=== PATIENT | female | born 1985 | race Two or more races ===

== ENCOUNTER 2018-10-17 05:41 | Day surgery (SDC) | payer OTHER ==
[2018-10-17] VITALS (13 sets, daily range): BP systolic 123–139; BP diastolic 45–84
[~2018-10-17] VITALS: Ht 167.6 cm; Wt 112.5 kg
[~2018-10-17 05:41] MED LIST: IBUPROFEN600 MG ORAL
[2018-10-17] MEDS ORDERED: celeBREX 200mg Cap **SURGERY PATIENTS ONLY ORAL ONE (06:00)
[2018-10-17] MEDS ORDERED: ceFAZolin 1gm IVPB IVPB ONE ×2 (06:00)
--- NOTE | 2018-10-17 06:49 | Anethesia Preoperative Eval ---
Marlo Gutierrez MD 10/17/18 0649: Anesthesia Pre-op [facility] General Date of Evaluation: Oct 17, 2018 Time of Evaluation: 06:45 ASA Score: ASA 3 Mallampati Score Class I : Soft palate, uvula, fauces, pillars visible Class II: Soft palate, uvula, fauces visible Class III: Soft palate, base of uvula visible Class IV: Only hard plate visible Mallampati Classification: Class III Anesthesia History: difficult airway Allergies: Coded Allergies: ACETAMINOPHEN (Verified Allergy, Severe, 10/17/18) trouble breathing, sweating, nausea, vomiting CARISOPRODOL (Verified Allergy, Severe, 10/17/18) trouble breathing, sweating, nausea, vomiting CODEINE (Verified Allergy, Severe, 10/17/18) trouble breathing, sweating, nausea, vomiting HYDROCODONE (Verified Allergy, Severe, 10/17/18) trouble breathing, sweating, nausea, vomiting MORPHINE (Verified Allergy, Severe, 10/17/18) trouble breathing, sweating, nausea, vomiting TRAMADOL (Verified Allergy, Severe, 10/17/18) trouble breathing, sweating, nausea, vomiting Uncoded Allergies: NARCOTICS (Allergy, Severe, 10/16/18) ANXIETY, TROUBLE BREATHING, NAUSEA,VOMITING, SWEATING Past Medical History Gastrointestinal/Genitourinary: Reports: GERD Other: obesity Anesthesia Pre-op Phys. Exam Physician Exam Last Vital Signs Date Time Temp Pulse Resp B/P (MAP) Pulse Ox O2 Delivery O2 Flow Rate FiO2 10/17/18 06:13 97.6 70 18 126/68 100 Room Air Constitutional: NAD Anesthesia Pre-op A/P Labs Urine Test Test 10/17/18 05:55 Urine HCG, Qualitative Negative (NEGATIVE) Risk Assessment & Plan Assessment: asa3 Status Change Before Surgery: No Pre-Antibiotics Given Within 1 Hr of Incision: Yes Anna Buchanan CRNA 10/17/18 0831: Anesthesia Pre-op [facility] General Date of Evaluation: Oct 17, 2018 Time of Evaluation: 07:00 Anesthesiologist: lindsey ASA Score: ASA 2 Mallampati Classification: Class II Surgeon: shell Diagnosis: knee pain Surgical Procedure: right knee arthroscopy Anesthesia History: none Family History: no anesthesia problems Allergies: Coded Allergies: ACETAMINOPHEN (Verified Allergy, Severe, 10/17/18) trouble breathing, sweating, nausea, vomiting CARISOPRODOL (Verified Allergy, Severe, 10/17/18) trouble breathing, sweating, nausea, vomiting CODEINE (Verified Allergy, Severe, 10/17/18) trouble breathing, sweating, nausea, vomiting HYDROCODONE (Verified Allergy, Severe, 10/17/18) trouble breathing, sweating, nausea, vomiting MORPHINE (Verified Allergy, Severe, 10/17/18) trouble breathing, sweating, nausea, vomiting TRAMADOL (Verified Allergy, Severe, 10/17/18) trouble breathing, sweating, nausea, vomiting Uncoded Allergies: NARCOTICS (Allergy, Severe, 10/16/18) ANXIETY, TROUBLE BREATHING, NAUSEA,VOMITING, SWEATING Medications: see eMAR Patient NPO?: Yes NPO Date: Oct 17, 2018 NPO Time: 00:01 Past Medical History Cardiovascular: Denies: HTN, CAD, PA, valve dz, arrhythmia, other Pulmonary: Denies: asthma, COPD, DANIEL, other Gastrointestinal/Genitourinary: Denies: GERD, CRI, ESRD, other Neurologic/Psychiatric: Denies: dementia, CVA, depression/anxiety, TIA, other Endocrine: Denies: DM, hypothyroidism, steroids, other HEENT: Denies: cataract (L), cataract (R), glaucoma, LITTLE TRAVERSE (L), LITTLE TRAVERSE (R), other Hematology/Immune: Denies: anemia, DVT, bleeding disorder, other Musculoskeletal/Integumentary: Denies: OA, RA, DJD, DDD, edema, other Other: obesity PSxH Narrative: none Anesthesia Pre-op Phys. Exam Physician Exam Constitutional: NAD Neurologic: CN 2-12 intact Cardiovascular: RRR Respiratory: CTA Gastrointestinal: S/NT/ND Airway Exam Mallampati Classification 2 Mallampati Score: Class II MO: full Neck: normal TMD: 2 ROM: full Dentures: no upper, no lower Anesthesia Pre-op A/P Labs Urine Test hcg neg Studies Pre-op Studies: EKG - sr Risk Assessment & Plan Plan: general Pre-Antibiotics Drug: ancef Given Within 1 Hr of Incision: Yes Time Given: 07:30 Marlo Gutierrez MD Oct 17, 2018 06:49 Anna Buchanan CRNA Oct 17, 2018 08:31
--- NOTE | 2018-10-17 06:52 | Immediate Post-Op Evaluation ---
Marlo Gutierrez MD 10/17/18 0652: Immediate Post-Op Evalulation Immediate Post-Op Evalulation Date of Evaluation: Oct 17, 2018 Anna Buchanan CRNA 10/17/18 0830: Immediate Post-Op Evalulation Immediate Post-Op Evalulation Procedure: right knee scope Date of Evaluation: Oct 17, 2018 Time of Evaluation: 08:29 IV Fluids: 600 Blood Pressure Systolic: 130 Blood Pressure Diastolic: 66 Pulse Rate: 87 Respiratory Rate: 14 O2 Sat by Pulse Oximetry: 99 Temperature (Fahrenheit): 97.1 Pain Score (1-10): 0 Nausea: No Vomiting: No Complications none Patient Status: awake, reacts, patent Hydration Status: adequate Drug: ancef Given Within 1 Hr of Incision: Yes Time Given: 07:30 Marlo Gutierrez MD Oct 17, 2018 06:52 Anna Buchanan CRNA Oct 17, 2018 08:30
[2018-10-17] MEDS ORDERED: EPINEPHrine 1mg/1ml Amp ONE (06:58)
[2018-10-17] MEDS ORDERED: Bupivacaine 0.25% Inj 30ml INJ ONE (06:58)
[2018-10-17] MEDS ORDERED: Kenalog-40 1ml Vial ONE (06:58)
[2018-10-17] MEDS ORDERED: Morphine Sulfate PF 10 ML ONE (06:58)
[2018-10-17] MEDS ORDERED: Ketorolac 30mg Inj ONE (06:58)
[2018-10-17] MEDS ORDERED: Lidocaine 1% 10mg/ml/Epi 0.005mg/ml 30ml vial INJ ONE (06:58)
[2018-10-17] MEDS ORDERED: LR 1000ml ONE (07:00)
[2018-10-17] MEDS ORDERED: Lidocaine 1% MPF 10mg/ml 5ml ONE (07:10)
[2018-10-17] MEDS ORDERED: Midazolam 2mg/2ml Inj ONE (07:10)
[2018-10-17] MEDS ORDERED: Propofol 200mg/20ml IV ONE (07:10)
[2018-10-17] MEDS ORDERED: fentaNYL 100 mcg/2 mL IV ONE (07:10)
--- NOTE | 2018-10-17 07:14 | Pre-Procedure Note/Attestation ---
Pre-Procedure Note/Attestation Complete Prior to Procedure Planned Procedure: right Procedure Narrative: knee diagnostic arthroscopy, possible synovectomy, menisectomy Indications for Procedure Pre-Operative Diagnosis: right knee internal derangement Attestation I attest that I discussed the nature of the procedure; its benefits; risks and complications; and alternatives (and the risks and benefits of such alternatives ), prior to the procedure, with the patient (or the patient's legal field representatives director). I attest that, if there was a reasonable possibility of needing a blood transfusion, the patient (or the patient's legal field representatives director) was given the [facility] standardized written summary, pursuant to the Emmanuel Leticia Blood Safety Act ([place] Health and Safety Code # 1645, as amended). I attest that I re-evaluated the patient just prior to the surgery and that there has been no change in the patient's H&P, except as documented below: Casper Walker MD Oct 17, 2018 07:14
[2018-10-17] MEDS ORDERED: Tylenol #3 tab (300mg/30mg) ORAL PRN (07:15)
[2018-10-17] MEDS ORDERED: HYDROcodone/Acetamin 5/325 tab ORAL PRN (07:15)
[2018-10-17] MEDS ORDERED: D5 1/2NS 1,000 ML IV SCH (07:15)
--- NOTE | 2018-10-17 07:15 | Operative Note - PDOC ---
Operative Note Operative Note Pre-op Diagnosis: right knee internal derangement Procedure: see op report Post-op Diagnosis: same as pre-op plus Operative Findings: consistent w/pre-op dx studies Anesthesia: MAC Specimen: none Complications: none Condition: stable Estimated Blood Loss: none Implant(s) used?: No Casper Walker MD Oct 17, 2018 07:15
[2018-10-17] MEDS ORDERED: Nimbex 2mg/ml Inj 10ML IVP ONE (07:26)
[2018-10-17] MEDS ORDERED: Rocuronium Bromide 50mg/5ml Inj IV ONE (07:26)
[2018-10-17] MEDS ORDERED: Succinylcholine 20mg/ml 10ml vial ONE (07:26)
[2018-10-17] MEDS ORDERED: Duramorph PF 10mg/10ml amp EPIDUR ONE (07:45)
[2018-10-17] MEDS ORDERED: Metoclopramide 10mg/2ml Inj ONE (07:52)
[2018-10-17] MEDS ORDERED: Dexamethasone 4mg/ml vial ONE (07:55)
[2018-10-17] MEDS ORDERED: fentaNYL 100 mcg/2 mL IV PRN (08:15)
[2018-10-17] MEDS ORDERED: Metoclopramide 10mg/2ml Inj IVP PRN (08:15)
--- NOTE | 2018-10-17 15:32 | 48 Hour Post Anesthesia Eval ---
Post Anesthesia Evaluation Procedure: right knee scope Date of Evaluation: Oct 17, 2018 Time of Evaluation: 15:31 Blood Pressure Systolic: 135 0: 45 Pulse Rate: 70 Respiratory Rate: 14 Temperature (Fahrenheit): 97.0 Airway: patent Nausea: No Vomiting: No Hydration Status: adequate Cardiopulmonary Status: stable Mental Status/LOC: patient returned to baseline Follow-up Care/Observations: na Post-Anesthesia Complications: none Follow-up care needed: N/A Anna Buchanan CRNA Oct 17, 2018 15:32
--- NOTE | 2018-10-17 18:00 | Operative Note - Dictated ---
DATE OF OPERATION: 10/17/2018 PREOPERATIVE DIAGNOSES: 1. Right knee contusion. 2. Right knee internal derangement. POSTOPERATIVE DIAGNOSES: 1. An 8 mm x 3 mm fissure in the medial femoral condyle with (grade 2 chondral damage). 2. Hypertrophic synovial tissue and fat pad, medial lateral patellofemoral compartment. 3. Right knee contusion. OPERATION PERFORMED: 1. Right knee diagnostic arthroscopy. 2. Right knee medial compartment chondroplasty. 3. Synovectomy and medial lateral patellofemoral compartment. SURGEON: Casper Walker M.D. ANESTHESIA: General. INDICATION FOR PROCEDURE: The patient had right knee. She had continued symptoms of pain. She failed conservative treatment. MRI showed significant soft tissue edema. After failing the conservative treatment, she elected to undergo diagnostic arthroscopy, possible synovectomy, meniscectomy and chondroplasty. Risks, limitations, expectations, complication of procedure were discussed in detail. All questions addressed. DESCRIPTION OF PROCEDURE: After informed consent was obtained, the patient was brought to the operating room. The patient was placed under general anesthesia. Tourniquet was applied about the right proximal thigh. Right leg was prepped and draped in a sterile manner. Time-out was performed. A 0.25% Marcaine injected into the knee. Portal sites injected with 1% lidocaine with epinephrine. Inferolateral stab incision was then made. Trocar introduced into the knee joint with some resistance through the lateral compartment, patellofemoral compartment. It was difficult to visualize patellofemoral compartment secondary to hypertrophic fat pad and synovial tissue. However there was a medial plica. Medial compartment was entered, free of any meniscal chondral damage. Medial compartment was entered. It was difficult to visualize the medial compartment. Therefore, a medial working portal was established. Synovectomy incision fat pad was performed extending intercondylar notch and lateral compartment. This allowed visualization of medial meniscus and probed noted to be intact. The ACL was probed noted to be intact. Lateral compartment was entered and was free of meniscal chondral damage. At this point, the camera was repositioned. Patellofemoral compartment excision of the fat pad. Synovectomy was completed. Once this was done, there is 8 mm x 2 mm fissure of the distal medial femoral condyle consistent with a contusion that she has sustained. Gentle chondroplasty was performed. Once that was completed, the instruments were removed. Portal sites were closed with 3-0 Monocryl sutures. Steri-Strips and a sterile dressing applied. The patient awoken and taken to recovery room with stable vital signs. ESTIMATED BLOOD LOSS: None. COMPLICATIONS: None. SPECIMENS: None. IMPLANTS: None. Casper Walker M.D. DR: Lane JOB#: [id number] CC: [id number]
== END 2018-10-17 10:20 | disposition home or self-care (01) ==
LOC: SUR 05:41
DX: S80.01XA Contusion of right knee, initial encounter (principal); M67.261 Synovial hypertrophy, not elsewhere classified, right lower leg; M89.8X6 Other specified disorders of bone, lower leg; K21.9 Gastro-esophageal reflux disease without esophagitis; E66.9 Obesity, unspecified; Z88.6 Allergy status to analgesic agent; Z88.5 Allergy status to narcotic agent; Z88.8 Allergy status to other drugs, medicaments and biological substances
CPT/HCPCS: 29876; 81025; J0171; J0330; J0690; J1100; J1885; J2250; J2274; J2405; J2704; J2765; J3010; J3301; J3490; 94003; 94150